=== PATIENT | female | born 1960 | race Caucasian/White ===

== ENCOUNTER → 2021-07-01 | Outpatient (CLI) | payer OTHER | LOC: EMI 06-18 13:00 | DX: I67.1 Cerebral aneurysm, nonruptured (principal); R56.9 Unspecified convulsions | CPT/HCPCS: 70544 ==

== ENCOUNTER → 2021-07-24 | Outpatient (CLI) | payer OTHER | LOC: KOH-I 07-23 11:00 | DX: N17.9 Acute kidney failure, unspecified (principal); N27.9 Small kidney, unspecified | CPT/HCPCS: 76775 ==

== ENCOUNTER → 2021-09-14 | Outpatient (CLI) | payer OTHER | LOC: EMI 10:27 | DX: G40.909 Epilepsy, unspecified, not intractable, without status epilepticus (principal) | CPT/HCPCS: 70551 ==

== ENCOUNTER → 2022-05-28 | Outpatient (CLI) | payer OTHER | LOC: RAD 10:10 | DX: R05.3 Chronic cough (principal); R91.8 Other nonspecific abnormal finding of lung field | CPT/HCPCS: 71046 ==